=== PATIENT | female | born 1940 | race Caucasian/White ===

== ENCOUNTER → 2017-02-14 | Outpatient (CLI) | payer MEDICARE, BC ==
[2017-02-14 13:14] LABS: BASOPHILS % (AUTO) 0.2 % (0-2); EOSINOPHILS % (AUTO) 0.6 % (0-4); HCT - HEMATOCRIT 40.1 % (36-46); IMMATURE GRANULOCYTE # (AUTO) 0.01 T/MM3 (0.00-0.03); IMMATURE GRANULOCYTE % (AUTO) 0.2 % (0.0-0.5); LYMPHOCYTES # (AUTO) 1.3 T/MM3 (1-4.8); MEAN CORPUSCULAR HGB 33.2 UUG (26-34); MEAN CORPUSCULAR HGB CONC(MCHC 32.4 GM/DL (31-37); MEAN CORPUSCULAR VOLUME 102.6 UM3 (80-100); MEAN PLATELET VOLUME 9.2 UM3 (9.4-12.4); MONOCYTES # (AUTO) 0.7 T/MM3 (0-0.8); MONOCYTES % (AUTO) 10.3 % (0-9.0); NEUTROPHILS #(AUTO)-ABSOLUTE 4.6 T/MM3 (1.8-7.7); NEUTROPHILS % (AUTO) 69.7 % (33-66); RED BLOOD COUNT 3.91 M/MM3 (4.00-5.20); WBC - WHITE BLOOD COUNT 6.6 T/MM3 (4.5-11.0)
[2017-02-14 13:34] LABS: BLOOD, URINE NEGATIVE (NEGATIVE); COLOR,URINE YELLOW (YELLOW); LEUKOCYTE ESTERASE ,URINE NEGATIVE (NEGATIVE); NITRITE,URINE NEGATIVE (NEGATIVE); UROBILINOGEN,URINE 0.2 EU/DL (NORMAL)
[2017-02-14 13:36] LABS: ALBUMIN 4.6 G/DL (3.5-5.0); ALBUMIN/GLOBULIN RATIO 1.3 RATIO (1.1-2.2); ALKALINE PHOSPHATASE 72 U/L (38-126); ALT (SGPT) 57 U/L (9-52); ANION GAP 11 MEQ/L (5-15); AST (SGOT) 27 U/L (14-36); BUN/CREATININE RATIO 27 RATIO (6-26); CALCIUM 10.1 MG/DL (8.4-10.2); CHLORIDE 100 MEQ/L (98-107); CO2 - CARBON DIOXIDE 23 MEQ/L (22-30); GLOMERULAR FILTRATION RATE 54; GLUCOSE 114 MG/DL (65-110); LDH 410 U/L (313-618); MAGNESIUM 2.5 MG/DL (1.6-2.3); POTASSIUM 4.4 MEQ/L (3.6-5); SODIUM 134 MEQ/L (134-144); TOTAL PROTEIN 8.1 G/DL (6.3-8.2)
== END ==
LOC: LAB 12:48
PROVIDERS: ATTEND Internal Medicine Medical Oncology
DX: C56.1 Malignant neoplasm of right ovary (principal); N39.46 Mixed incontinence
CPT/HCPCS: 36415; 80053; 81003; 83615; 83735; 85025

== ENCOUNTER → 2017-02-15 | Outpatient (CLI) | payer MEDICARE, BC ==
[~2017-02-15] MED LIST: GADOBUTROL 10mMol/10ml INJECTION IV ONE; SALINE FLUSH 10ml SYRINGE ONE
--- NOTE | 2017-02-15 16:45 | DI ---
Indication: ITS.REASON: M54.5 LOW BACK PAIN; C56.1 OVARIAN CA PROCEDURE: MRI LUMBAR SPINE W/WO CONTRAST: Encounter: Initial Comparison: CT lumbar spine dated February 10, 2017 Technique: Multiplanar multisequence MR imaging of the lumbar spine was performed with and without contrast. Contrast: 6 mL Gadavist Findings: Alignment of the lumbar spine is abnormal. There is scoliosis. Transitional anatomy is present. The spine is labeled and the numbering system is visible on the PACS images. The vertebral body heights are maintained. No acute fracture. Degenerative retrolisthesis of L1 on L2, grade 1. The paraspinal soft tissues are unremarkable. The conus medullaris terminates normally at L1. Segmental analysis: L1-L2: Disk height loss with mild bulging but no significant central canal stenosis. Moderate degenerative facet hypertrophy results in severe right and mild left neural foraminal stenosis. L2-L3: Degenerative facet disease contributing to mild central canal stenosis. No focal protrusion. Severe right neural foraminal stenosis with disk material impinging upon the exiting right L2 nerve root. No significant left foraminal stenosis. L3-L4: Degenerative facet hypertrophy with a small disk bulge causes mild central canal stenosis. Mild bilateral neural foraminal stenosis. L4-L5: Moderate disk height loss with a small bulge and degenerative facet disease contributing to mild central canal stenosis. Moderate bony neural foraminal stenosis on the right. Severe bony left foraminal stenosis with impingement on the exiting left L4 nerve root L5-S1: Normal the spine is labeled with sacralized L5. Postcontrast images show no enhancing vertebral body or central spinal canal masses. Impression: Scoliosis with degenerative disk and facet disease with multifocal severe neural foraminal stenosis and nerve root impingement. This appears more severe than the description on the comparison lumbar spine CT. .
--- NOTE | 2017-02-15 16:50 | DI ---
Indication: ITS.REASON: M54.5 LOW BACK PAIN; C56.1 OVARIAN CA PROCEDURE: MRI THORACIC SPINE W/WO CONTRA: Encounter: Initial Comparison: None Technique: Multiplanar, multisequence, thoracic spine protocol MR imaging with and without contrast of the spine was acquired. Contrast: 6 mL of Gadavist FINDINGS: Alignment of the thoracic spine is abnormal with scoliosis. The vertebral body heights are maintained. There is a small left central disk protrusion at T10-T11 without cord impingement. Mild bony neural foraminal stenosis on the left at this level. Age-appropriate degenerative changes are seen within the remaining facet joints and intervertebral disks, but these do not result in significant compromise of the spinal canal or neural foramina. The thoracic cord is normal in morphology, caliber, and signal intensity on the acquired sequences. There is no evidence of cord compression or intraspinal mass. No abnormal enhancement is evident. IMPRESSION: 1. Scoliosis and mild degenerative change without evidence of metastatic disease. 2. No evidence of spinal cord compression or evidence of nerve root compromise in the thoracic spine region. .
== END ==
LOC: IMA 10:13
PROVIDERS: ATTEND Nurse Practitioner
DX: M51.24 Other intervertebral disc displacement, thoracic region (principal); M41.9 Scoliosis, unspecified; M47.896 Other spondylosis, lumbar region; M48.06 Spinal stenosis, lumbar region; M51.36 Other intervertebral disc degeneration, lumbar region; C56.1 Malignant neoplasm of right ovary; N39.46 Mixed incontinence
CPT/HCPCS: 72157; 72158; A9585